=== PATIENT | female | born 1965 | race Caucasian/White ===

== ENCOUNTER → 2017-10-30 | Outpatient (CLI) | payer BC | END | disposition home or self-care (01) | LOC: LAB SHORT 13:58 → PLD 13:58 | DX: N84.0 Polyp of corpus uteri (principal); N92.0 Excessive and frequent menstruation with regular cycle; R87.619 Unspecified abnormal cytological findings in specimens from cervix uteri | CPT/HCPCS: 88305 ==

== ENCOUNTER 2017-11-25 13:49 | Day surgery (SDC) | payer BC ==
[~2017-11-25] VITALS: Ht 165.1 cm; Wt 78.2 kg
[~2017-11-25 13:49] MED LIST: ALPR1; CYCL10; GABA300; Lamictal200 MG; Mobic15 MG; Norco 10-325 T1 EACH; Prilosec Otc20 MG; VENL150ER; ZOHYDRO ER50 M1
== END 2017-11-25 16:04 | disposition home or self-care (01) ==
LOC: ORSCSDS 13:49
PROVIDERS: Obstetrics & Gynecology Gynecology
PROC: 0UDB8ZX Extraction of Endometrium, Via Natural or Artificial Opening Endoscopic, Diagnostic (ICD-10-PCS; principal; 2017-11-25 15:00)
PROC: 0UB98ZX Excision of Uterus, Via Natural or Artificial Opening Endoscopic, Diagnostic (ICD-10-PCS; principal; 2017-11-25 15:00)
DX: N84.0 Polyp of corpus uteri (principal); N92.0 Excessive and frequent menstruation with regular cycle; G47.33 Obstructive sleep apnea (adult) (pediatric); K21.9 Gastro-esophageal reflux disease without esophagitis; R73.9 Hyperglycemia, unspecified; F41.9 Anxiety disorder, unspecified; E78.5 Hyperlipidemia, unspecified; J45.909 Unspecified asthma, uncomplicated; Z79.899 Other long term (current) drug therapy
CPT/HCPCS: J7120

== ENCOUNTER → 2019-06-16 | Outpatient (CLI) | payer BC ==
[~2019-06-16] MED LIST changes: +ALPR1 PO; +CYCL10 PO; +GABA300 PO; +Lamictal200 MG PO; +Mobic15 MG PO; +Norco 10-325 T1 EACH PO; +Omeprazole20 M1 PO; +VENL150ER PO; +ZOHYDRO ER50 M1 PO
== END ==
LOC: LAB 15:29 → LAB SHORT 15:29
DX: R35.0 Frequency of micturition (principal)
CPT/HCPCS: 87077; 87086; 87186

== ENCOUNTER 2019-11-03 11:31 | Day surgery (SDC) | payer BC ==
[~2019-11-03] VITALS: Ht 167.6 cm; Wt 79.1 kg
--- NOTE | 2019-11-03 13:33 | NUR ---
11/03/19 1333 [facility] CONFIRMED VERY LOW LEVELS OF HCG DETECTED IN BLOOD WORK. DR HAMLIN AND ANESTHESIA NOTIFIED. DR HAMLIN SPOKE WITH PT. AGREED TO CANCEL BY DR HAMLIN, DR LEMA, AND PT. PT WALKED OUT DROVE HER HOME.
== END 2019-11-03 13:34 | disposition home or self-care (01) ==
LOC: ORSCSDS 11:31
DX: D50.9 Iron deficiency anemia, unspecified (principal); Z80.0 Family history of malignant neoplasm of digestive organs; Z53.9 Procedure and treatment not carried out, unspecified reason
CPT/HCPCS: 84703; J7120

== ENCOUNTER 2022-06-11 11:39 | Day surgery (SDC) | payer OTHER ==
[~2022-06-11] VITALS: Ht 167.6 cm; Wt 78.9 kg
== END 2022-06-11 13:15 | disposition home or self-care (01) ==
LOC: ORSCSDS 11:39
PROVIDERS: Internal Medicine Gastroenterology
PROC: 0DB98ZX Excision of Duodenum, Via Natural or Artificial Opening Endoscopic, Diagnostic (ICD-10-PCS; principal; 2022-06-11 13:00)
PROC: 0DB78ZX Excision of Stomach, Pylorus, Via Natural or Artificial Opening Endoscopic, Diagnostic (ICD-10-PCS; principal; 2022-06-11 13:00)
DX: R10.13 Epigastric pain (principal); R13.10 Dysphagia, unspecified; K44.9 Diaphragmatic hernia without obstruction or gangrene; I10 Essential (primary) hypertension; Z79.899 Other long term (current) drug therapy
CPT/HCPCS: 88305; 88342; J2704; J7120

== ENCOUNTER → 2025-03-14 | Outpatient (CLI) | payer BC ==
[~2025-03-14] MED LIST changes: +Aspir 8181 MG PO; +METO25ER PO
== END ==
LOC: LAB SHORT 13:40 → LAB 13:40
PROVIDERS: Family Medicine
DX: Z01.419 Encounter for gynecological examination (general) (routine) without abnormal findings (principal)
CPT/HCPCS: 87624; G0145